=== PATIENT | female | born 1980 | race Asian ===

== ENCOUNTER → 2017-04-13 | Outpatient (CLI) | payer OTHER ==
[~2017-04-13] MED LIST: LEVO50CA2 PO
== END ==
LOC: CFH 11:12
PROVIDERS: ATTEND Family Medicine
DX: M79.601 Pain in right arm (principal); M25.511 Pain in right shoulder

== ENCOUNTER → 2017-09-19 | Outpatient (CLI) | payer OTHER | LOC: CFH 11:23 | PROVIDERS: ATTEND Family Medicine | DX: R07.9 Chest pain, unspecified (principal); R06.02 Shortness of breath | CPT/HCPCS: 71046 ==

== ENCOUNTER 2019-07-13 20:02 | Emergency (ER) | payer OTHER ==
[~2019-07-13] VITALS: Ht 149.9 cm; Wt 67.1 kg
[2019-07-13 20:10] VITALS: BP 133/77
[2019-07-13] MEDS ORDERED: KETOROLAC 30 MG/1 ML IVPush ONE (20:30)
[2019-07-13] MEDS ORDERED: SODIUM CHLORIDE 0.9% 1,000ML IVBOLUS ONE (20:30)
[2019-07-13] MEDS ORDERED: SODIUM CHLORIDE FLUSH 10ML SYR IVF ONE (20:30)
[2019-07-13] MEDS ORDERED: ONDANSETRON 2MG/ML, 2ML IVPush ONE (20:30)
[2019-07-13 20:54] LABS: BASOPHILS # (AUTO) 0.03 x10^3/uL (0-0.1); BASOPHILS % (AUTO) 0 % (0-1); EOSINOPHILS # (AUTO) 0.02 x10^3/uL (0-0.4); EOSINOPHILS % (AUTO) 0 % (1-7); LYMPHOCYTES # (AUTO) 1.47 x10^3/uL (1-3.4); LYMPHOCYTES % (AUTO) 12 % (22-44); MD NO; MEAN CORPUSCULAR HEMOGLOBIN 29.1 pg (27.0-34.8); MEAN CORPUSCULAR HGB CONC 33.4 g/dL (32.4-35.8); MEAN CORPUSCULAR VOLUME 87.2 fL (80-100); MEAN PLATELET VOLUME 8.1 fL (7.4-10.4); MONOCYTES # (AUTO) 0.31 x10^3/uL (0.2-0.8); MONOCYTES % (AUTO) 3 % (2-9); NEUTROPHILS # (AUTO) 10.12 x10^3/uL (1.8-6.8); NEUTROPHILS % (AUTO) 85 % (42-75); PLATELET COUNT 372 x10^3/uL (130-400); RED BLOOD COUNT 4.46 x10^6/uL (3.82-5.3); RED CELL DISTRIBUTION WIDTH 12.4 % (9.6-15.2)
[2019-07-13] MEDS ORDERED: DIPHENHYDRAMINE 50 MG/ML, 1ML IVPush ONE (21:00)
[2019-07-13] MEDS ORDERED: METOCLOPRAMIDE 5 MG/ML, 2ML IVPush ONE (21:00)
[2019-07-13 21:03] LABS: ALANINE AMINOTRANSFERASE 29 U/L (12-78); ALBUMIN 3.8 g/dL (3.4-5.0); ANION GAP 10 mmol/L (5-15); CALCIUM 9.2 mg/dL (8.5-10.1); CHLORIDE 101 mmol/L (98-107); CREATININE 0.83 mg/dL (0.55-1.02)
[2019-07-13 21:13] LABS: ALKALINE PHOSPHATASE 74 U/L (45-117); BILIRUBIN,TOTAL 0.4 mg/dL (0.2-1.0); TOTAL PROTEIN 8.1 g/dL (6.4-8.2)
[2019-07-13] MEDS ORDERED: KETOROLAC 30 MG/1 ML ONE (21:19)
[2019-07-13] MEDS ORDERED: DIPHENHYDRAMINE 50 MG/ML, 1ML ONE (21:19)
[2019-07-13] MEDS ORDERED: METOCLOPRAMIDE 5 MG/ML, 2ML ONE (21:19)
[2019-07-13 21:49] LABS: HCG UR SG 1.009 (1.003-1.030)
[2019-07-13 21:50] LABS: CULTURE INDICATED? YES; MICROSCOPIC INDICATED
--- NOTE | 2019-07-13 22:00 | NUR ---
PT COLD AND REQUESTED A EXTRA BLANKET, 2 BLANKETS PROVIDED
== END 2019-07-13 22:48 ==
LOC: ED 22:40
DX: K80.20 Calculus of gallbladder without cholecystitis without obstruction (principal); R51 Headache; E03.9 Hypothyroidism, unspecified; R11.2 Nausea with vomiting, unspecified
CPT/HCPCS: 36415; 76700; 80053; 81001; 81025; 83690; 84443; 85025; 87086; 96374; 96375; 99284; J1200; J1885; J2765; J7030